=== PATIENT | female | born 1990 | race Caucasian/White ===

== ENCOUNTER 2023-03-11 15:11 | Inpatient (IN) | payer MEDICAID, SELFPAY ==
[2023-03-11] VITALS (31 sets, daily range): BP systolic 101–134; BP diastolic 55–81; PULSE 59–90; RESP 15; TEMP 36.7–37.1; O2SAT 95–100
[2023-03-11] MEDS: Lactated Ringers 1,000 ML 50 ML IV (15:20)
[2023-03-11 15:43] LABS: Absolute Lymphocyte Count 2.49 X10^3/uL (0.83-4.51); Absolute Neutrophil Count 10.3 X10^3/uL (2.0-7.7); Basophil# 0.03 X10^3/uL; Basophil% 0.2 % (0-1); Eosinophil# 0.15 X10^3/uL; Eosinophils% 1.1 % (0-5); Hematocrit 32.5 % (37-47); Hemoglobin 10.9 g/dL (12.0-15.0); Lymphocyte # 2.49 X10^3/ul (0.83-4.51); Lymphocyte % 18.1 % (19-41); Mean Corp Hgb Conc 33.5 g/dL (32-36); Mean Corpuscular Hgb 32.9 pg (27.0-32.0); Mean Corpuscular Volume 98.2 fL (81-99); Mean Platelet Vol. 12.2 fl (6.2-12.0); Monocyte# 0.65 X10^3/uL; Monocyte% 4.7 % (0-10); NRBC Flagged by Analyzer 0 % (0-5); Neutrophil # 10.33 X10^3/uL (2.7-7.7); Neutrophil % 75.3 % (47-70); Platelet Count 254 K/mm3 (150-450); RBC Distribution Width SD 46.5 fl (35.1-43.9); Red Blood Count 3.31 M/mm3 (4.2-5.4); White Blood Count 13.7 K/mm3 (4.4-11.0)
--- NOTE | 2023-03-11 15:45 | PLAC_PTH ---
PATIENT: ELMER MAYER LOC: [facility] U#:[id number] AGE/SX: 32/F ROOM: WP010 RE03/11/[address]: Dr. Amanda Gomez MD : 1990 BED: 1 DIS: 03/13/2023 SPEC #: [id number] RECD: 03/11/23 20:13 STATUS: MARIAH REKathy #: [id number] GRACE: 03/11/23 15:[address]: Amanda Gomez DEPT: SURGICAL PATHOLOGY RECD BY: Ashley Yee ENTERED: 03/14/23 08:42 SP TYPE: PLACENTA OTHR DR: Dr. Earl Cuello, DO Tissues: Placenta, NOS Procedures: Surgery Specimen Level V HEADER OPERATION: Vaginal delivery PRE-OP DIAGNOSIS: delivery TISSUE SUBMITTED: Placenta MICROSCOPIC DIAGNOSIS Duenas placenta (519 gm): Umbilical cord - trivascular with no inflammation. Placental membranes - No pathologic change. Placental disc - Kennedi-Marck change, mildly increased intraparenchymal plaques and mild intervillous congestion. AM:essie 03/15/2023 MICROSCOPIC DESCRIPTION Slides are reviewed. GROSS DESCRIPTION SPECIMEN: PLACENTA / CLINICAL INFORMATION: A. Weight: 2.715 kg B. Gestational Age: 35.5 weeks C. Sex: Male PLACENTAL WEIGHT (POST FIXATION): 519 gm PLACENTAL DIMENSIONS: 15.0 x 15.0 x 4.0 cm PLACENTAL SHAPE: Usual ovoid PLACENTAL WEIGHT FOR GESTATIONAL AGE: Within 10-99th percentile. MEMBRANES - Present A. Insertion: Marginal B. Site of rupture from edge: 9.0 cm from edge of placental disc C. Color of membrane: [place] D. Abnormalities: None UMBILICAL CORD - Present A. Color: [place] B. Insertion: Marginal C. Length: 10.0 cm D. Diameter: 1.2 cm E. Number of vessels: Three F. Abnormalities: None PLACENTAL DISC - Present A. Color of surface: [place] B. surface abnormalities: None C. Maternal cotyledons: Intact with minimal tears D. Attached retro placental clot: No clot E. Cut surface: Dark red and spongy F. Lesions: None G. Separate clot: Absent SECTIONS SUBMITTED: 1. Membrane roll 2. Cord, maternal end 3. Cord, end 4. Placental disc, and maternal surfaces 5. Placental disc, and maternal surfaces 6. Placental disc, and maternal surfaces SJ:essie 03/14/2023 TC:5 CPT: 17369
[2023-03-11 16:48] LABS: Syphilis Antibodies Non-reactive
[2023-03-11] MEDS: Oxytocin 10 UNITS/ML Vial IM (16:50)
[2023-03-11] MEDS: Oxytocin 15 Units/NS 250ml 15 UNITS/250 ML IV.SOLN 83 UNITS IV (16:50)
--- NOTE | 2023-03-11 16:57 | PCM.HP.OB ---
HPI - General General Date of Admission: 03/11/23 Date of Service: 03/11/23 Chief Complaint: contractions HPI Narrative ELMER MAYER, is a 32--year-old female 5 para 4 presents at 35-5/7 weeks gestation complaining contractions day. She denied any vaginal bleeding or leaking of fluid. She was seen in the office and found to be in early labor and sent to labor and delivery. has been complicated to date by me eternal tobacco use and history of previous delivery and she is a grand multipara. Maternal Data Information Final RUBINA: 04/11/23 Gestational age: 35 4/7 PFS PFS Medical History no medical history Home Medications ferrous sulfate 325 mg (65 mg iron) tablet 325 mg PO .every other day anemia 03/11/23 [History Last Taken 03/10/23 08:00] vit 87-iron carb,asp 18 mg-folic acid 1 mg-dha 350 mg capsule (Prenate Mini (ferrous asparto glycinate)) 1 cap PO DAILY 03/11/23 [History Last Taken 03/10/23 08:00] Allergy/AdvReac Type Severity Reaction Status Date / Time hydrocodone [From Vicodin] Allergy Intermediate Hives Verified 03/11/23 15:21 Surgical History (Updated 03/11/23 @ 15:31 by Sarah Rocha) [place] teeth extracted Social History Smoking Status: Former smoker History Elective abortions Hx Para 4 Spontaneous abortions Hx # Term Pregnancies Ectopic pregnancies Hx # Pregnancies Multiple births # of living children ROS Constitutional Constitutional: Denies fatigue, fever(s) or malaise Eyes Eyes: Denies change in vision ENT HEENT: Denies dizziness or headache(s) Cardiovascular Cardiovascular: Denies chest pain, dyspnea or lightheadedness Respiratory/Chest Respiratory/Chest: Denies cough or dyspnea Gastrointestinal Gastrointestinal: Denies change in bowel habits Genitourinary Genitourinary: Denies burning urination or genital lesions Integumentary Integumentary: Denies rash Neurologic Neurologic: Denies confusion, dizziness, headache(s), numbness or weakness Vital Signs Vital Signs Vital Signs: 03/11/23 15:25 03/11/23 15:25 03/11/23 15:11 Temperature Temperature Source Temporal Pulse Rate 77 Blood Pressure BP Systolic BP Diastolic Pulse Ox 98 03/11/23 15:11 03/11/23 15:11 03/11/23 15:11 Temperature Temperature Source Pulse Rate 77 Blood Pressure 134/81 H BP Systolic 134 BP Diastolic 81 Pulse Ox 98 03/11/23 15:11 Temperature 98.5 F Temperature Source Pulse Rate Blood Pressure BP Systolic BP Diastolic Pulse Ox Weight Weight: 58.513 kg Physical Exam Const alert and no apparent distress General Appearance: cooperative HEENT normocephalic Resp normal respiratory effort Cardio regular rate GI soft to palpation GI Narrative: gravid, nontender, appropriate for gestational age Extremity no calf tenderness General Extremity: edema Skin no wounds Rashes: No rashes noted Psych activity/motor behavior normal Labs Labs Labs: Blood Type Pending Antibody Screen NEGATIVE Hct 32.5 % (37-47) L Hgb 10.9 g/dL (12.0-15.0) L Syphilis Total Ab Non-reactive Group B Strep DNA Pending Assessment & Plan (1) 35 weeks gestation of : PLAN: High risk multigravida and labor. Send rapid group B strep but will not likely return before patient deliver so will initiate group B strep prophylaxis based on risk factors. Less than 37 weeks gestation, however delivery is eminent so will not give betamethasone. Wine Specialist is aware. May have epidural or routine pain control measures as needed. Estimated weight is less than 4000 g and pelvis clinically adequate to expect vaginal delivery. (2) labor in third trimester with delivery: (3) Grand multipara in labor in third trimester:
--- NOTE | 2023-03-11 17:01 | EX.PCM.OBRPT ---
Assessment & Plan (1) (spontaneous vaginal delivery): (2) Grand multipara in labor in third trimester: (3) labor in third trimester with delivery: (4) 35 weeks gestation of : Maternal Data Information Final RUBINA: 04/11/23 Gestational age: 35 4/7 Vaginal Delivery Maternal Presentation Maternal Presentation: Active Labor Operative Information Date of Procedure: 03/11/23 Pre-Operative Diagnosis: labor Post-Operative Diagnosis: same Surgery / Procedure Performed: Spontaneous Vaginal Delivery Type of Anesthesia: None Drain: - (none) Estimated Blood Loss: 300 Time of Delivery: 16:45 Findings Description of Procedure: A vigorous male was delivered ABRAM over an intact perineum. A loose nuchal cord ?1 was easily reduced. The remainder the was delivered with maternal pushing and gentle traction only in less than 15 seconds. The Pitocin infusion was initiated for active management of the third stage. The cord was clamped and cut after 1 minute. The was attended to by the waiting nursing staff and the professional bass fisherman. The placenta was delivered spontaneously and intact. The cervix and vagina were intact. Sponge and needle counts were correct. A vaginal sweep was completed by me. Presentation: ABRAM Amniotic Membrane Rupture Type: Artificial Amniotic Fluid Description: Clear Placental Delivery Description: Spontaneous Placenta Disposition: Sent to Pathology Cord Vessel Description: 3 Vessels Cord Entanglement: Around neck x 1, loose Nuchal Cord Compression: Without compression Cord Gases: ABG and VBG Infant A Gender: Male Wolfgang) (1 minute): 8 (5 minute): 8 Delayed Cord Clamping: Yes Post Vaginal Delivery Medications Given After Delivery: IV Pitocin Episiotomy Description: None Laceration: None Complication Complications: None
[2023-03-11 17:03] LABS: Group B Strep DNA By PCR Negative (Negative); Internal Control PASS; Probe Check PASS; Specimen Processing Control PASS
[2023-03-11 20:14] LABS: Pathology Specimen OB SEE PATHOLOGY REPORT
[2023-03-12 00:21] VITALS: BP 110/52; PULSE 77; RESP 14
[2023-03-12] MEDS: Ibuprofen 600 MG Tablet PO ×2 (03:23→11:50)
--- NOTE | 2023-03-12 03:28 | NURSING ---
This RN initiated pumping with MOB due to baby being transferred to special care. This RN educated pt to pump at least every 3 hours with the speed set at 80 until milk starts to come in and to set the suction to comfort but try to get anywhere from 30-60% if tolerated. Mother verbalized understanding
--- NOTE | 2023-03-12 03:35 | NURSING ---
This RN also instructed mother to wash pumping parts in basin with soap excluding the tubing after each pumping session. Mother verbalized understanding
[2023-03-12 05:01] VITALS: BP 103/61; PULSE 66; RESP 15
[2023-03-12 05:26] LABS: Hematocrit 30.8 % (37-47); Hemoglobin 10.3 g/dL (12.0-15.0); Mean Corp Hgb Conc 33.4 g/dL (32-36); Mean Corpuscular Hgb 32.9 pg (27.0-32.0); Mean Corpuscular Volume 98.4 fL (81-99); Mean Platelet Vol. 11.4 fl (6.2-12.0); Platelet Count 222 K/mm3 (150-450); RBC Distribution Width CV 12.9 % (11.6-14.6); Red Blood Count 3.13 M/mm3 (4.2-5.4); White Blood Count 13.5 K/mm3 (4.4-11.0)
[2023-03-12 08:35] VITALS: BP 94/54; PULSE 67; RESP 18; TEMP 36.6
--- NOTE | 2023-03-12 10:06 | PCM.PN.OB ---
Subjective Subjective Pain well controlled, some significant cramping when she pumps. Average lochia. Tolerating regular diet. Denies headache or visual changes Objective Data Objective Data Vital Signs: Vital Signs Temp Pulse Resp BP Pulse Ox O2 Del Method 97.9 F 67 18 94/54 L 98 Room Air 03/12/23 08:35 03/12/23 08:35 03/12/23 08:35 03/12/23 08:35 03/11/23 19:26 03/12/23 08:35 Oxygen Delivery Method Room Air Weight: 58.513 kg Intake & Output: Intake and Output for Last 24 Hours 03/10/23 03/11/23 03/12/23 23:59 23:59 23:59 Intake Total 425.83 / 425.83 Output Total 300 / 300 Balance 125.83 / 125.83 Lab / Micro Data 03/12/23 05:20 Labs: Laboratory Results - last 24 hr 03/11/23 15:00: Group B Strep DNA Negative, Specimen Comment Not Reportable 03/11/23 15:20: WBC 13.7 H, RBC 3.31 L, Hgb 10.9 L, Hct 32.5 L, MCV 98.2, MCH 32.9 H, MCHC 33.5, RDW Std Deviation 46.5 H, RDW Coeff of Soo 13.0, Plt Count 254, MPV 12.2 H, Immature Gran % (Auto) 0.600, Neut % (Auto) 75.3 H, Lymph % (Auto) 18.1 L, [place] % (Auto) 4.7, Eos % (Auto) 1.1, Baso % (Auto) 0.2, Absolute Neuts (auto) 10.3 H, Absolute Lymphs (auto) 2.49, Nucleated RBC % 0, Syphilis Total Ab Non-reactive, Antibody Screen NEGATIVE 03/12/23 05:20: WBC 13.5 H, RBC 3.13 L, Hgb 10.3 L, Hct 30.8 L, MCV 98.4, MCH 32.9 H, MCHC 33.4, RDW Std Deviation 46.0 H, RDW Coeff of Soo 12.9, Plt Count 222, MPV 11.4 Physical Exam Const alert and no apparent distress Narrative: Fundus firm, below umbilicus. Assessment & Plan (1) (spontaneous vaginal delivery): PLAN: day #1 status post 35-week vaginal delivery. Patient is doing well. is in the special care nursery. She is pumping breastmilk. Routine care today.
--- NOTE | 2023-03-12 11:00 | CASEMGMT ---
Social Work Assessment Labor and Delivery Unit Patient Address: [address] [place] [address] Phone number: [phone] Date of Referral: 03/11/23 Time of Referral:? 19:08 Referred By: Gilberto Gomez Date of Intervention: 03/12/23? Time of Intervention:? 11:00 Reason for Referral: FOB in recovery for five years, MOB?s father AOD abuse History obtained from: medical records, mother of baby (MOB) and father of baby (FOB) Household composition: MOB reports she and FOB rent a home together with MOB?s four other children; no current housing concerns. Patient's parent/guardian status: MOB reports she has been with FOB, Gregory, for almost three years. FOB is actively involved with NB, assists with other children and is father of one of MOB?s children, Yuni. MOB reports no concerns with DV or MH for FOB. FOB confirmed five years sober. ? Medical History: FAWAD was engaged in care with [facility] starting around 8 weeks. MOB reports this is her sixth that resulted in the of their fifth child, NB baby boy, Gregory CORONEL. Gregory was born 03/[birth year]/23, weighing 2.715kg, and Apgars 8/9. MOB report NB?s sewing machinist will be Dr. Banda. MOB plans to have her tubes removed. Educational Status: MOB reports highest level of education is high school diploma, no learning concerns. ? Financial Status: MOB reports she is employed at [employer] and plans to be on maternity leave for 12 weeks. FOB is employed nuclear technologist and will take some time off to assist MOB and NB. No financial concerns reported. Infant Supplies: MOB reports having most supplies needed including a car seat, bassinet, clothes and diapers/wipes. MOB explained they had a baby shower planned for today that will be rescheduled to receive more supplies. MOB reports having everything she currently needs to care for NB. Childcare/Caregiver(s): FAWAD reports she will be home with NB for 12 weeks and is unsure of childcare plan yet. Transportation: MOB report they have vehicles, no concerns. ?? Programs/Agencies Involved: ??MOB reports food stamps with JFS but no other services. MOB declined referrals for other community agencies. Children Services/Legal Issues: None reported??? Behavioral Health Issues: ??Mental Health History:? MOB reports no MH diagnosis but explained she was engaged in counseling services when she was a teenager. MOB reports no AOD use, reports no previous psych hospitalizations or current MH services. Family/Social Stressors:? No stressors identified. Support Systems: MOB reports she is supported by FOB and FOB?s sister. Depression/Shaken Baby/Safe Sleeping: SW educated MOB on depression/anxiety as well as shaken baby and safe sleep. MOB report NB will be sleeping in bassinet beside their bed. SW provided MOB with educational information as well as resources on the topics. MOB report understanding and voice no other needs. SW encouraged MOB to contact OB or PCP if she is concerned with symptoms. ?? ASSESSMENT:? SW met with MOB and introduced herself and role as [facility] Carriage Setter. MOB in agreement to speak with SW with FOB present. SW utilized open and close ended questions to gather information needed for an assessment. MOB report having supplies needed, identified supports and is currently receiving JFS services. MOB denies MH history and confirmed FOB is five years sober and has no concerns regarding his sobriety. MOB reports being a former smoker and is unsure if she will resume smoking. SW assisted MOB with developing Safe plan of care in the event she does smoke. MOB reports NB will be with trusted, sober healthcare receptionist, MOB plans to smoke outside, wash her hands and change her clothes before returning to care for NB. FOB also agreeable to plan. SW educated MOB on safe sleep, shaken baby and PPD/A. SW also provided local resources for [facility]. RYANNE updated RN of resources provided, no concerns. PLAN:? No other services requested or indicated. Mayda Laguna HYDROGEN BRAZE FURNACE OPERATOR, MAXWELL
[2023-03-12 11:53] VITALS: BP 109/61; PULSE 78; RESP 16; TEMP 36.6
[2023-03-12 16:45] VITALS: BP 104/61; PULSE 75; RESP 18; TEMP 36.6
[2023-03-12 20:13] VITALS: BP 111/66; PULSE 77; RESP 18; TEMP 36.2; O2SAT 99
[2023-03-13 02:10] VITALS: BP 91/40; PULSE 69; RESP 16; TEMP 36.1; O2SAT 100
[2023-03-13 07:57] VITALS: BP 107/54; PULSE 65; RESP 18; TEMP 36.3; O2SAT 99
--- NOTE | 2023-03-13 10:31 | PCM.PN.OB ---
Subjective Subjective Pain well controlled, average lochia Objective Data Objective Data Vital Signs: Vital Signs Temp Pulse Resp BP Pulse Ox O2 Del Method 97.4 F L 65 18 107/54 L 99 Room Air 03/13/23 07:57 03/13/23 07:57 03/13/23 07:57 03/13/23 07:57 03/13/23 07:57 03/13/23 07:57 Oxygen Delivery Method Room Air Weight: 58.513 kg Intake & Output: Intake and Output for Last 24 Hours 03/11/23 03/12/23 03/13/23 23:59 23:59 23:59 Intake Total 425.83 / 425.83 Output Total 300 / 300 Balance 125.83 / 125.83 Lab / Micro Data 03/12/23 05:20 Physical Exam Narrative awake, alert, NAD Assessment & Plan (1) (spontaneous vaginal delivery): PLAN: PPD #2 doing well breasfeeding, in special care nursery
--- NOTE | 2023-03-13 10:50 | DCINST_ITS ---
Discharge Instructions Activity May resume sexual activity in: 6 weeks Follow Up Care Please Follow Up With: Amanda Gomez MD When: Follow up with our office in 1-2 and 6 weeks or as needed. [phone] or send a [employer] message Test Results: Test results from this visit will be discussed in further detail at your follow- up appointment, if applicable. Discharge Plan Admission Admit Date/Time: 03/11/23 15:11 Primary Reason for Your Visit: labor and vaginal delivery Attending Provider: Amanda Gomez Primary Care Provider: Earl Cuello Discharge Orders/Prescriptions Prescriptions: New ibuprofen [ibuprofen] 600 MG tablet 600 mg PO Q6H PRN (Reason: Pain) 30 Days Qty: 60 1RF Continued ferrous sulfate 325 mg (65 mg iron) tablet 325 mg PO .every other day Prenate Mini (ferr asp glycin) 18-1-350 mg capsule 1 cap PO DAILY Referrals / Follow Up: Earl Cuello DO [Primary Care Provider] - Disposition Disposition (needs filled in before D/C Order can be placed): Home, Self Care
--- NOTE | 2023-03-13 10:51 | DS.PCM_ITS ---
Providers Date of Admission: 03/11/23 Primary Care Physician: Dr. Earl Cuello, Reason For Visit: VAGINAL DELIVERY Diagnosis Discharge Diagnosis (1) (spontaneous vaginal delivery): Status: Acute Code(s): O80 - Encounter for full-term uncomplicated delivery Plan: PPD #2 doing well breasfeeding, in special care nursery Medications at Discharge Home Medications ferrous sulfate 325 mg (65 mg iron) tablet 325 mg PO .every other day anemia 03/11/23 vit 87-iron carb,asp 18 mg-folic acid 1 mg-dha 350 mg capsule (Prenate Mini (ferrous asparto glycinate)) 1 cap PO DAILY 03/11/23 ibuprofen 600 mg tablet 600 mg PO Q6H PRN Pain 30 days #60 TABLETS 03/13/23 Hospital Course Operations None Procedures None Summary of Care Provided Minutes Spent on Discharge: 19 Hospital Course: Patient was in for labor at 35 weeks on 03/11/2023. She had a spontaneous vaginal delivery without complication. By day #2 she was ambulating, urinating tolerating regular diet. She desired discharge home. We will schedule tubal for her in 4 to 6 weeks. is in the special care nursery, breast-feeding and doing well. Follow-up in the office in 1-2 in 6 weeks or as needed. Weight / BMI Weight Weight: 58.513 kg ABG / Lab / Microbiology Data 03/12/23 05:20 D/C Instructions May resume sexual activity in: 6 weeks Please Follow Up With: Amanda Gomez MD When: Follow up with our office in 1-2 and 6 weeks or as needed. [phone] or send a [employer] message Meaningful Use Info Meaningful Use Diagnoses (Choose all that apply): None applicable Discharge Plan Admission Admit Date/Time: 03/11/23 15:11 Primary Reason for Your Visit: labor and vaginal delivery Attending Provider: Amanda Gomez Primary Care Provider: Earl Cuello Discharge Orders/Prescriptions Prescriptions: New ibuprofen [ibuprofen] 600 MG tablet 600 mg PO Q6H PRN (Reason: Pain) 30 Days Qty: 60 1RF Continued ferrous sulfate 325 mg (65 mg iron) tablet 325 mg PO .every other day Prenate Mini (ferr asp glycin) 18-1-350 mg capsule 1 cap PO DAILY Referrals / Follow Up: Earl Cuello DO [Primary Care Provider] - Disposition Disposition (needs filled in before D/C Order can be placed): Home, Self Care
[2023-03-13] MEDS: Ibuprofen 600 MG Tablet PO (16:02)
== END 2023-03-13 16:30 | disposition home or self-care (01) | DRG 560 ==
PROVIDERS: Admitting Provider Obstetrics & Gynecology; PCP Family Medicine; Visit Provider Obstetrics & Gynecology
DX: O60.14X0 Preterm labor third trimester with preterm delivery third trimester, not applicable or unspecified (principal); Z37.0 Single live birth; O69.81X0 Labor and delivery complicated by cord around neck, without compression, not applicable or unspecified; Z3A.35 35 weeks gestation of pregnancy; Z87.891 Personal history of nicotine dependence
CPT/HCPCS: 59025; 59050; 85025; 85027; 86780; 86850; 86900; 86901; 87081; 87653; 88307; 99221; J7120; G0378